=== PATIENT | male | born 1960 | race Two or more races ===

== ENCOUNTER 2022-02-03 15:45 | Emergency (ER) | payer BC ==
[~2022-02-03] VITALS: Ht 180.3 cm; Wt 90.7 kg
--- NOTE | 2022-02-03 16:00 | NUR ---
Recived pt 61 yrs Male came from home c/o abdominal pain yesterday and resolve by it self no n/v
--- NOTE | 2022-02-03 16:15 | NUR ---
Blood drow by lab tach at bed side
[2022-02-03 16:28] LABS: BASOPHILS # (AUTO) 0.1 K/uL (0.0-0.2); BASOPHILS % (AUTO) 0.6 % (0.0-2.0); EOSINOPHILS % (AUTO) 1.1 % (0.0-6.0); HEMATOCRIT 49 % (39-51); HEMOGLOBIN 16.1 g/dL (13.5-17.5); LYMPHOCYTES # (AUTO) 3.3 K/uL (0.8-4.8); LYMPHOCYTES % (AUTO) 23.4 % (20.0-44.0); MEAN CORPUSCULAR HGB CONC 33 g/dl (31.0-36.0); MEAN CORPUSCULAR VOLUME 88 fL (80-96); MONOCYTES # (AUTO) 1.5 K/uL (0.1-1.30); MONOCYTES % (AUTO) 10.6 % (2.0-12.0); NEUTROPHILS # (AUTO) 9.1 K/uL (1.8-8.9); NEUTROPHILS % (AUTO) 64.3 % (43.0-81.0); PLATELET COUNT (AUTO) 186 K/uL (150-450); WHITE BLOOD COUNT (AUTO) 14.1 K/uL (4.3-11.0)
--- NOTE | 2022-02-03 16:37 | NUR ---
toCT SCAN OF ABDOMIN VIA GARNY STABLE CONDITION
[2022-02-03 16:41] LABS: CALCIUM, SERUM 9.5 mg/dL (8.5-10.1); CREATININE 1.2 mg/dL (0.6-1.3); POTASSIUM 4.5 mmol/L (3.5-5.1)
[2022-02-03 16:53] LABS: ALBUMIN 3.6 g/dL (3.4-5.0); BILIRUBIN,DIRECT 0.2 mg/dL (0.0-0.2); TOTAL PROTEIN, SERUM 7.1 g/dL (6.4-8.2)
--- NOTE | 2022-02-03 17:09 | NUR ---
cxray done at bed side
[2022-02-03] MEDS ORDERED: GUAI-671 PO (17:50)
[2022-02-03] MEDS ORDERED: AZIT250T PO (17:50)
--- NOTE | 2022-02-03 18:00 | NUR ---
Patient discharged to home in stable condition. Written and verbal after care instructions given. Patient verbalizes understanding of instruction.
[2022-02-03 18:11] VITALS: BP 130/94
[2022-02-04] MEDS ORDERED: AZIT250T13 PO (09:48)
[2022-02-04] MEDS ORDERED: GUAI-671 PO (09:49)
== END 2022-02-03 18:23 | disposition home or self-care (01) ==
LOC: ER 15:53
DX: J15.9 Unspecified bacterial pneumonia (principal); Z79.899 Other long term (current) drug therapy
CPT/HCPCS: 36415; 80048-TC; 80076-TC; 83690-TC; 85025-TC